=== PATIENT | female | born 1940 | race Caucasian/White ===

== ENCOUNTER 2020-08-06 10:30 | Outpatient (REF) | payer MEDICARE, OTHER, SELFPAY ==
--- NOTE | 2020-08-06 | MM_ITS ---
EXAMINATION: MM SCREENING DIGITAL BREAST TOMOSYNTHESIS, RIGHT CLINICAL INFORMATION: Screening. Asymptomatic. Remote history contralateral left mastectomy 1976. Due for yearly. COMPARISON: Mammography: 07/31/2019, outside exams 2-D images 05/01/2018, 03/28/2017 ([facility], [place], [place]). TECHNIQUE: Digital breast tomosynthesis is performed in both the craniocaudal and mediolateral oblique views along with computer-aided detection (CAD). Synthesized 2D images are generated from the tomosynthesis. FINDINGS: There are scattered areas of fibroglandular density (ACR BI-RADS breast composition Category b). Parenchymal pattern is similar to prior studies. There is no developing density or interval mass or architectural abnormality or abnormal calcifications. Intramammary node again seen mid upper outer right breast. No significant changes prior studies. MM/MM tomosynthesis screening RT IMPRESSION: No mammographic evidence of malignancy. ASSESSMENT: BI-RADS 2: Benign RECOMMENDATION: Routine annual mammography screening. This patient's information was entered into a reminder system with a target due date for their next mammogram.
== END 2020-08-06 10:31 | disposition home or self-care (01) ==
LOC: HO.MAMMO 10:30
PROVIDERS: PCP Internal Medicine; Visit Provider Internal Medicine
DX: Z12.31 Encounter for screening mammogram for malignant neoplasm of breast (principal)
CPT/HCPCS: 77067

== ENCOUNTER → 2020-08-19 09:13 | Outpatient (REF) | payer MEDICARE, OTHER, SELFPAY ==
--- NOTE | 2020-08-19 09:30 | CA_ITS ---
Transthoracic Echocardiogram Patient (Last, First, Middle): Danilea Delgadillo A Gender: Female Date of : 1940 Age: 80 Procedure Date: 08/19/2020 Procedure Type: Transthoracic Echocardiogram Location: OP Height: 165.1 cm Weight: 67.13 kg BSA: 1.74 m2 Heart Rate: bpm BP: 126 / 80 mmHg Associate Programmer Analyst: EZEKIEL Baptiste MD: Pan Hanson MD Vegetable [employer]i Farmworker: Pan Hanson MD Symptoms: Z95.2 S/P AVR I10 HTN Study Quality: Fair ECG Rhythm: Sinus Conclusions: - 1. Normal LV systolic function with grade 1 diastolic dysfunction 2. Normally function bioprosthetic aortic valve 3. Normal RV systolic pressure 4. No pericardial effusion Findings Left Ventricle Normal left ventricular size, thickness, and systolic function. The visually estimated ejection fraction is between 55-60%. Spectral Doppler is indicative of an impaired relaxation filling pattern. E/E prime ratio is <8, consistent with normal filling pressures. Evidence suggests grade I (mild) diastolic dysfunction. Right Ventricle Normal right ventricular cavity size and systolic function. Atria Both atria are normal in size. There is no evidence of interatrial shunt. Aortic Valve A bioprosthetic aortic valve is present. The prosthetic aortic valve appears to be functioning normally. There is mild calcification of the aortic valve. There is no aortic valve stenosis. The mean gradient is 7 mmHg. There is no aortic valve regurgitation. Mitral Valve There is mild anterior and posterior mitral leaflet thickening. There is mild mitral annular calcification. There is trace mitral valve regurgitation. There is no mitral valve stenosis. Pulmonic Valve The pulmonic valve was not well visualized. Tricuspid Valve Likely normal tricuspid valve structure and function. There is trace tricuspid valve regurgitation. The right ventricular systolic pressure is normal. The right ventricular systolic pressure is 25 mmHg. Normal right atrial pressure. There is no evidence of pulmonary hypertension. Great Vessels All visible segments of the aorta are normal in size. The pulmonary artery was not well visualized. Venous The inferior vena cava is normal in size and collapses greater than 50% with inspiration. Pericardium/Pleural There is no evidence of pericardial effusion. Prior Study Comparison No significant change compared to prior study dated: 08/30/2019. Measurements 2D Linear Measurements IVSd: 1.11 0.6-0.9/0.6-1.0 cm LVIDd: 3.74 3.9-5.3/4.2-5.9 cm LVIDd Index: 2.15 2.4-3.2/2.2-3.1 cm/m2 LVIDs: 2.63 2.0-3.6 cm LVPWd: 1.14 0.7-1.1 cm LA Diam: 3.30 2.7-3.8/3.0-4.0 cm LAIDs Index: 1.90 1.5-2.3 cm/m2 LV Mass: 169.11 67-162/88-224 g LV Mass Index: 97.19 43-95/49-115 g/m2 LVOT Diam: 1.90 3.0+(-)1.3 cm 2D Systolic Function EF 4C: 55.30 >55% EF 2C: 51.70 >55% EF BiP: 55.40 >55% Mitral Valve MV Pk E: 0.58 MV PK A: 0.85 MV Decel Time: 310.00 E/A: 0.70 E'Lateral: 5.66 E'Medial: 4.68 E/E' Med: 12.40 E/E' Lat: 10.30 PHT: 91.00 MVA PHT: 2.42 Decel Saunders: 1.88 Aortic Valve AoV Pk Abisai: 1.86 AoV Mn Abisai: 1.21 AoV VTI: 0.37 AoV Pk Grad: 14.00 Aov Mn Grad: 7.00 KASSANDRA Cont.VTI: 1.77 LVOT LVOT Pk Abisai: 1.08 LVOT Mn Abisai: 0.69 LVOT VTI: 0.23 LVOT Pk Grad: 5.00 LVOT Mn Grad: 2.00 LVOT Diam: 1.90 LVOT Area: 2.84 Diastolic Function MV Pk E: 0.58 MV Pk A: 0.85 E/A: 0.70 E'Medial: 4.68 E/E' Med: 12.40 E' Laterial: 5.66 E/E' Lat: 10.30 Tricuspid Valve TR Pk Abisai: 2.37 TR Pk Grad: 22.00 RA Press: 3.00 RVSP: 25.00 Great Vessels Aorta Ao Asc: 3.80 2.1-3.4 cm Ao Arch: 2.20 Updated in Other Vendor System with Status of Final Pan Hanson MD electronically signed on 08/19/2020 4:41:26 PM with status of Final
== END ==
LOC: HO.CARD 09:13
PROVIDERS: Visit Provider Internal Medicine Cardiovascular Disease
DX: I10 Essential (primary) hypertension (principal); Z95.2 Presence of prosthetic heart valve
CPT/HCPCS: 93306

== ENCOUNTER → 2020-09-03 11:10 | Outpatient (BNVA) | payer MEDICARE, OTHER, SELFPAY | PROVIDERS: PCP Internal Medicine; Visit Provider Internal Medicine Cardiovascular Disease | DX: I10 Essential (primary) hypertension (principal); Z95.2 Presence of prosthetic heart valve | CPT/HCPCS: 93005; 99212 ==

== ENCOUNTER 2021-03-29 11:54 | Outpatient (REF) | payer MEDICARE, OTHER, SELFPAY ==
[2021-03-29 12:07] VITALS: BP 152/68; PULSE 61; RESP 16; TEMP 36.4; O2SAT 97
[2021-03-29 12:08] VITALS: BMI 25.2
== END 2021-03-29 11:55 | disposition home or self-care (01) ==
LOC: HO.MS 11:54
PROVIDERS: PCP Internal Medicine; Visit Provider Ophthalmology
PROC: (CPT 66821; principal; 2021-03-29 13:20)
DX: H26.492 Other secondary cataract, left eye (principal); H40.013 Open angle with borderline findings, low risk, bilateral; I10 Essential (primary) hypertension; Z79.899 Other long term (current) drug therapy; Z96.1 Presence of intraocular lens; Z88.2 Allergy status to sulfonamides; Z87.891 Personal history of nicotine dependence
CPT/HCPCS: 66821

== ENCOUNTER 2021-04-29 21:45 | Emergency (ER) | payer MEDICARE, OTHER, SELFPAY ==
--- NOTE | ~2021-04-29 | CT_ITS ---
EXAMINATION: CT ABDOMEN AND PELVIS WITHOUT AND WITH CONTRAST [GI bleeding study] CLINICAL INFORMATION: Rectal bleeding COMPARISON: None. TECHNIQUE: Multidetector volumetric imaging was performed from the superior aspect of the liver through the pubic symphysis before and after the administration of 80 mL Omnipaque 350 intravenous contrast. Postcontrast images were acquired during the arterial and delayed phases.. Sagittal and coronal reformatted images were obtained on the technologist workstation. This CT examination was performed using dose optimization techniques as appropriate, variously including the following: *Automated exposure control *Adjustment of mA and/or kV according to patient size (this includes techniques or standardized protocols for targeted exams where dose is matched to indication/reason for exam; i.e. extremities or head) *Use of iterative reconstruction technique DLP: 1167 mGy-cm FINDINGS: LUNG BASES: The visualized lung bases are unremarkable. LIVER, GALLBLADDER, AND BILIARY TREE: The liver is normal in size, shape, and attenuation. No focal hepatic lesion or biliary ductal dilatation is present. Cholecystectomy. PANCREAS: Unremarkable. SPLEEN: Unremarkable. ADRENAL GLANDS: Unremarkable. GENITOURINARY: The kidneys are normal in size, axis, morphology and parenchymal attenuation with symmetric enhancement bilaterally. No suspicious renal cyst or mass. No filling defects within the renal pelves, ureters or bladder. No hydronephrosis or hydroureter. Ureters are normal in course and caliber. Bladder is normal. No urinary calculi. No perinephric abnormalities. The uterus and adnexa are unremarkable. No adnexal cyst or mass. GASTROINTESTINAL TRACT: Pancolonic diverticulosis, most concentrated within the sigmoid colon. There is arterial enhancement in the low rectum/anal rectal junction which could be mucosal or represent bleeding at this location. No additional sources of potential active gastrointestinal bleeding are identified. Small sliding-type hiatal hernia. Stomach otherwise unremarkable. Prominent diverticulum emanating from the proximal duodenum. ABDOMINAL WALL: No significant hernia is appreciated. LYMPH NODES: Normal. VASCULAR: Aorta is atherosclerotic but normal caliber. Patent venous structures. OSSEOUS STRUCTURES: Unremarkable. CT/CT gi bleed abd pel wo/w con IMPRESSION: * There is arterial phase hyperenhancement in the anorectal region which may relate to bleeding hemorrhoids or mucosal hyperenhancement. No additional sites of potential active gastrointestinal bleeding are identified. * Pancolonic diverticulosis, most concentrated within the left colon. No evidence of diverticulitis.
[2021-04-29 21:47] VITALS: BP 133/68; PULSE 80; RESP 18; TEMP 36.6; O2SAT 96; BMI 24.3
[2021-04-29 22:53] LABS: MANUAL DIFF FLAG NO
[2021-04-29 22:55] LABS: Basophils Percent Auto 0.1 % (0-2); Eosinophils Percent Auto 0.3 % (0-4); Hematocrit 37.8 % (37-47); Hemoglobin 12.7 g/dl (12.0-16.0); Imm Gran Abs Auto 0.03 X10*3/uL (0.00-0.03); Imm Gran Pct Auto 0.3 % (0.0-0.4); Lymphocytes Absolute Auto 1.5 X10*3/uL (1.2-4.9); Lymphocytes Percent Auto 12.9 % (20-40); Mean Corpuscular HGB Conc 33.6 g/dl (31.0-35.0); Mean Corpuscular Hemoglobin 32.2 pg (27.0-33.0); Mean Corpuscular Volume 95.9 fL (80-98); Mean Platelet Volume 9.1 fL (9.4-12.3); Monocytes Absolute Auto 0.9 X10*3/uL (0.1-1.2); Monocytes Percent Auto 8.2 % (2-11); Neutrophils Absolute Auto 8.8 X10*3/uL (2.0-8.3); Neutrophils Percent Auto 78.2 % (45-73); Platelet Count 211 X10*3/uL (160-400); Red Blood Count 3.94 X10*6/uL (4.20-5.50); Red Cell Distribution Width 13.2 % (11.0-16.0); White Blood Count 11.3 X10*3/uL (4.8-10.8)
--- NOTE | 2021-04-29 22:58 | ED_ITS ---
HPI - General Adult General Chief complaint: Vaginal Bleeding Stated complaint: See Stated Time Seen by Provider: 04/29/21 21:54 Source: patient and family Mode of arrival: ambulatory Limitations: no limitations History of Present Illness HPI narrative: no AC therapy, sitting on toilet tonight then saw blood in toilet thought maybe it came from her vagina but she is not sure - no prior bleeding bouts, she did tell her daughter she's been having diarrhea lately and abdominal cramps, had normal colonoscopy 10 years ago. Reports no pain at this time. No further bleeding since large bout at home - it occurred while urinating before bed, no bleeding on the way here. complaint: bleeding Onset (ago): hour(s) (730 AM today) Severity: moderate Pain Consistency: intermittent Relieving factors: none Exacerbating factors: none Associated symptoms: weakness and other (nausea, dizzy when standing, has had intermittent abdominal cramps) Treatments prior to arrival: none Related Data Home Medications Medication Instructions Recorded Confirmed amoxicillin 500 mg tablet 2,000 mg PO ONCE 09/03/20 09/03/20 aspirin 81 mg tablet,delayed 81 mg PO DAILY 09/03/20 09/03/20 release (Adult Low Dose Aspirin) omeprazole 20 mg capsule,delayed 20 mg PO DAILY 09/03/20 09/03/20 release rosuvastatin 20 mg tablet 20 mg PO BEDTIME 09/03/20 09/03/20 Previous Rx's Medication Instructions Recorded metoprolol tartrate 50 mg tablet 75 mg PO BID #270 tab 02/01/21 Allergies Allergy/AdvReac Type Severity Reaction Status Date / Time oxycodone [Oxycodone] Allergy Mild N/V, Unverified 04/02/20 14:55 vomiting Sulfa (Sulfonamide Allergy Mild HIVES Unverified 04/02/20 14:55 Antibiotics) acetaminophen [Vicodin] Allergy Unknown Verified 09/05/19 00:00 atorvastatin [Lipitor] Allergy Unknown Verified 09/05/19 00:00 simvastatin [Zocor] Allergy Unknown Verified 09/05/19 00:00 hydrocodone [Hydrocodone] AdvReac Mild N/V Unverified 04/02/20 14:55 sulfa Allergy Unknown hives Uncoded 09/05/19 00:00 Review of Systems Review of Systems: Constitutional : No Weight loss, No Fever, No Chills ENT/Mouth : No sore throat, No Rhinorrhea Eyes: No Swelling, No Redness Cardiovascular : No Chest Pain, No SOB, No Edema Respiratory : No Cough, No Sputum, No Wheezing Gastrointestinal : Positive Nausea, no Vomiting, positive Diarrhea, positive abdominal Pain, pos Hematochezia, No Melena Genitourinary : No Dysuria, No Urinary Frequency, No Hematuria, No Urgency Musculoskeletal : No joint pain, No Myalgias, No Joint Swelling Skin : No Skin Lesions, No rash Neuro : No Weakness, No Numbness, No Dizziness, No Headache Psych : No Anxiety/Panic, No Depression Heme/Lymph: No Bruising, No Lymphadenopathy Endocrine : No Polyuria, No Polydipsia All other systems reviewed and are negative. [facility] Past Medical History Attestation statement: The following information was validated with the patient. Medical History HTN (hypertension) Surgical History Hx of cardiac cath Hx of knee surgery Hx of mastectomy S/P AVR Family History Family History (Updated 09/03/20 @ 11:17 by Snow Jimenez Wesly) Father CVD (cardiovascular disease) Mother No problems noted. Social History Social History (Updated 04/29/21 @ 22:59 by Kat Smith DO) Patient Tobacco Use Status: Never used Tobacco Use of substances other than those prescribed or required for medical reasons: No Advance Directives: No Advance Directives Information Provided: No Physical Exam Vital Signs: Vital Signs: Last Vital Signs Temp 98 F 04/29/21 21:47 Pulse 83 04/30/21 00:50 Resp 12 04/30/21 00:50 BP 115/54 L 04/30/21 00:50 Pulse Ox 97 04/30/21 00:50 Body Mass Index 24.3 Appearance: Alert. Oriented X3. No acute distress. Eyes: Pupils equal, round and reactive to light. ENT: Pharynx normal. Neck: Normal inspection. Neck supple. CVS: Normal heart rate and rhythm. Pulses normal. Respiratory: No respiratory distress. Breath sounds normal. Abdomen: Soft and non-tender. : no bleeding noted vaginally Rectal: large non-bleeding hemorrhoid, dried blood noted at rectum Skin: Skin warm and dry. Normal skin color. Normal skin turgor. Extremities: No lower extremity edema. No calf ttp Neuro: Oriented X 3. No motor deficit. No sensory deficit. Course Course Course Narrative: no further bouts of bleeding in the department, signed out pending CT scan and repeat CBC ordered for 230am. Dr Roche to assume care. Medical Decision Making MDM Narrative Medical decision making narrative: 80 yo female with hx of HTN tissue s/p AVR at this time she likely had rectal bleeding as there is no evidence of vaginal bleeding on exam - will obtain basic labs, guiac study, EKG, CT scan for GIB protocol - IVF and zofran. Dispo per results and findings, plan to recheck H/H Lab Data Result diagrams: 04/29/21 22:48 04/29/21 22:48 Labs: Lab Results 04/29/21 04/29/21 04/29/21 Range/Units 22:48 22:48 22:54 WBC 11.3 H (4.8-10.8) X10*3/uL RBC 3.94 L (4.20-5.50) X10*6/uL Hgb 12.7 (12.0-16.0) g/dl Hct 37.8 (37-47) % MCV 95.9 (80-98) fL MCH 32.2 (27.0-33.0) pg MCHC 33.6 (31.0-35.0) g/dl RDW 13.2 (11.0-16.0) % Plt Count 211 (160-400) X10*3/uL MPV 9.1 L (9.4-12.3) fL Immature Gran % (Auto) 0.3 (0.0-0.4) % Neut % (Auto) 78.2 H (45-73) % Lymph % (Auto) 12.9 L (20-40) % Andrews % (Auto) 8.2 (2-11) % Eos % (Auto) 0.3 (0-4) % Baso % (Auto) 0.1 (0-2) % Lymph # (Auto) 1.5 (1.2-4.9) X10*3/uL Andrews # (Auto) 0.9 (0.1-1.2) X10*3/uL Eos # (Auto) 0.0 (0.0-0.4) X10*3/uL Baso # (Auto) 0.0 (0.0-0.2) X10*3/uL Abs Immat Gran (auto) 0.03 (0.00-0.03) X10*3/uL Absolute Neuts (auto) 8.8 H (2.0-8.3) X10*3/uL Absolute Nucleated RBC 0.000 (0.0-0.012) X10*3/uL Nucleated RBC % (auto) 0.0 (0.0-0.2) /100WBC Sodium 142 (135-145) mmol/L Potassium 4.1 (3.3-5.1) mmol/L Chloride 108 (96-108) mmol/L Carbon Dioxide 25 (22-29) mmol/L Anion Gap 13 (12-20) BUN 11 (9-16) mg/dL Creatinine 0.85 (0.5-1.4) mg/dL Estim Creat Clear Calc 47.4 Estimated GFR > 60 Random Glucose 104 (60-115) mg/dL Calcium 9.6 (8.4-10.2) mg/dL Urine Color YELLOW Urine Appearance CLEAR Urine pH 6.0 (5.0-8.0) Ur Specific [place] <= 1.005 (1.005-1.025) Urine Protein NEG (NEG-TRACE) MG/DL Urine Glucose (UA) NEG (NEG) MG/DL Urine Ketones NEG (NEG) MG/DL Urine Blood 2+ H (NEG) Urine Nitrite NEG (NEG) Ur Leukocyte Esterase NEG (NEG) Urine RBC 0-2 (0) /HPF Urine WBC 0 (0-4) /HPF Ur Squamous Epith Cells 1+ /LPF Urine Bacteria TRACE /LPF Stool Occult Blood (NEGATIVE) Blood Type Antibody Screen 04/30/21 04/30/21 Range/Units 00:25 00:53 WBC (4.8-10.8) X10*3/uL RBC (4.20-5.50) X10*6/uL Hgb (12.0-16.0) g/dl Hct (37-47) % MCV (80-98) fL MCH (27.0-33.0) pg MCHC (31.0-35.0) g/dl RDW (11.0-16.0) % Plt Count (160-400) X10*3/uL MPV (9.4-12.3) fL Immature Gran % (Auto) (0.0-0.4) % Neut % (Auto) (45-73) % Lymph % (Auto) (20-40) % Andrews % (Auto) (2-11) % Eos % (Auto) (0-4) % Baso % (Auto) (0-2) % Lymph # (Auto) (1.2-4.9) X10*3/uL Andrews # (Auto) (0.1-1.2) X10*3/uL Eos # (Auto) (0.0-0.4) X10*3/uL Baso # (Auto) (0.0-0.2) X10*3/uL Abs Immat Gran (auto) (0.00-0.03) X10*3/uL Absolute Neuts (auto) (2.0-8.3) X10*3/uL Absolute Nucleated RBC (0.0-0.012) X10*3/uL Nucleated RBC % (auto) (0.0-0.2) /100WBC Sodium (135-145) mmol/L Potassium (3.3-5.1) mmol/L Chloride (96-108) mmol/L Carbon Dioxide (22-29) mmol/L Anion Gap (12-20) BUN (9-16) mg/dL Creatinine (0.5-1.4) mg/dL Estim Creat Clear Calc Estimated GFR Random Glucose (60-115) mg/dL Calcium (8.4-10.2) mg/dL Urine Color Urine Appearance Urine pH (5.0-8.0) Ur Specific [place] (1.005-1.025) Urine Protein (NEG-TRACE) MG/DL Urine Glucose (UA) (NEG) MG/DL Urine Ketones (NEG) MG/DL Urine Blood (NEG) Urine Nitrite (NEG) Ur Leukocyte Esterase (NEG) Urine RBC (0) /HPF Urine WBC (0-4) /HPF Ur Squamous Epith Cells /LPF Urine Bacteria /LPF Stool Occult Blood POSITIVE (NEGATIVE) Blood Type O Positive Antibody Screen NEGATIVE Discharge Plan Discharge Clinical Impression: Bright red rectal bleeding Prescriptions: No Action metoprolol tartrate 50 mg tablet 75 mg PO BID Qty: 270 RF: 2 omeprazole 20 mg capsule,delayed release(DR/EC) 20 mg PO DAILY RF: 0 rosuvastatin 20 mg tablet 20 mg PO BEDTIME RF: 0 amoxicillin 500 mg tablet 2,000 mg PO ONCE RF: 0 aspirin [Adult Low Dose Aspirin] 81 mg tablet,delayed release (DR/EC) 81 mg PO DAILY RF: 0
[2021-04-29 23:00] LABS: Appearance Urine CLEAR; Color Urine YELLOW; Glucose Urine UA NEG (NEG); Leukocyte Esterase Urine NEG (NEG); Nitrite Urine NEG (NEG); Specific Gravity - Urine <= 1.005 (1.005-1.025); UACC Culture Trigger NO; Urine Blood 2+ (NEG); Urine Ketones NEG (NEG); Urine Protein NEG (NEG-TRACE)
[2021-04-29 23:06] LABS: Bacteria Urine TRACE /LPF; Squamous Epithelial Cell Urine 1+ /LPF
[2021-04-29 23:08] LABS: RBC Urine 0-2 /HPF (0); WBC Urine 0 /HPF (0-4)
[2021-04-29 23:12] LABS: Anion Gap 13 (12-20); Blood Urea Nitrogen 11 mg/dL (9-16); Calcium 9.6 mg/dL (8.4-10.2); Carbon Dioxide 25 mmol/L (22-29); Chloride 108 mmol/L (96-108); Creatinine Clr Calc Pharmacy 47.4; Estimated Glomerular Filt Rate > 60; Glucose Random 104 mg/dL (60-115); Potassium 4.1 mmol/L (3.3-5.1); Sodium 142 mmol/L (135-145)
[2021-04-30] MEDS: 0.9 % Sodium Chloride 500 ML IV (00:01)
[2021-04-30 00:50] VITALS: BP 115/54; PULSE 83; RESP 12; O2SAT 97
[2021-04-30 00:59] LABS: OBS Int Ctl Valid YES; OBS1 POSITIVE (NEGATIVE)
[2021-04-30] MEDS: iohexoL 350 MG/ML 100 ML INFUS..BTL 80 ML IV (02:00)
[2021-04-30 02:10] VITALS: BP 129/64; PULSE 90; RESP 16; TEMP 36.9; O2SAT 95
[2021-04-30] MEDS: ondansetron HCL 4 MG/2 ML VIAL IVPUSH (02:47)
[2021-04-30 03:02] LABS: Hematocrit 36.6 % (37-47); Hemoglobin 12.6 g/dl (12.0-16.0); Mean Corpuscular HGB Conc 34.4 g/dl (31.0-35.0); Mean Corpuscular Hemoglobin 32.6 pg (27.0-33.0); Mean Corpuscular Volume 94.8 fL (80-98); Platelet Count 195 X10*3/uL (160-400); Red Blood Count 3.86 X10*6/uL (4.20-5.50); Red Cell Distribution Width 13.4 % (11.0-16.0); White Blood Count 10.1 X10*3/uL (4.8-10.8)
[2021-04-30 03:49] VITALS: BP 154/75; PULSE 87; RESP 20; O2SAT 95
[2021-04-30 06:01] VITALS: BP 163/100; PULSE 70; RESP 16; O2SAT 98
--- NOTE | 2021-04-30 06:03 | PC.NURSE ---
Daughter Cristina contacted regarding transport home [phone]. Cristina on the way. VSS at this time. Pt ambulating to the bathroom with a steady gait, denies pain.
== END 2021-04-30 06:18 | disposition home or self-care (01) ==
PROVIDERS: Emergency Medicine; Emergency Provider Student in an Organized Health Care Education/Training Program; PCP Internal Medicine
DX: K62.5 Hemorrhage of anus and rectum (principal); I10 Essential (primary) hypertension; Z95.2 Presence of prosthetic heart valve
CPT/HCPCS: 36415; 74178; 80048; 81001; 81003; 82272; 85025; 85027; 86850; 86900; 86901; 96361; 96374; 99284; J2405; Q9967

== ENCOUNTER → 2021-08-13 09:16 | Outpatient (REF) | payer MEDICARE, OTHER, SELFPAY ==
--- NOTE | ~2021-08-13 | MM_ITS ---
EXAMINATION: MM SCREENING DIGITAL BREAST TOMOSYNTHESIS, RIGHT CLINICAL INFORMATION: Due for yearly. Prior history remote left mastectomy 1976. COMPARISON: Mammography: 08/06/2020, 07/31/2019, 05/01/2018, 03/28/2017, 03/23/2016 TECHNIQUE: Digital breast tomosynthesis is performed in both the craniocaudal and mediolateral oblique views along with computer-aided detection (CAD). Synthesized 2D images are generated from the tomosynthesis. FINDINGS: There are scattered areas of fibroglandular density (ACR BI-RADS breast composition Category b). There are no significant masses, abnormal calcifications, or other abnormalities. Parenchymal pattern is similar to prior studies. There is no developing density or architectural abnormality. The axilla and skin contours are unremarkable. No significant changes. MM/MM tomosynthesis screening RT IMPRESSION: No mammographic evidence of malignancy. ASSESSMENT: BI-RADS 2: Benign RECOMMENDATION: Routine annual mammography screening. This patient's information was entered into a reminder system with a target due date for their next mammogram.
--- NOTE | 2021-08-13 09:19 | CA_ITS ---
Transthoracic Echocardiogram Patient (Last, First, Middle): Daniela Delgadillo A Gender: Female Date of : 1940 Age: 81 Procedure Date: 08/13/2021 Procedure Type: Transthoracic Echocardiogram Location: OP Height: 165.1 cm Weight: 66.68 kg BSA: 1.74 m2 Heart Rate: bpm BP: 120 / 78 mmHg Conventions Reservationist: PATRICIA Referring MD: Pan Hanson MD Hospital Internship: Pan Hanson MD Symptoms: Z95.2 - Presence of prosthetic heart valve Study Quality: Fair ECG Rhythm: Sinus Conclusions: - 1. Normal LV systolic function with grade I diastolic dysfunction 2. Normally functioning bioprosthetic aortic valve with mean gradient of 7 mm of Hg 3. 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 Normal RVSP 5. No pericardial effusion Findings Left Ventricle Normal left ventricular size, thickness, and systolic function. The visually estimated ejection fraction is between 55-60%. Spectral Doppler is indicative of an impaired relaxation filling pattern. E/E prime ratio is <8, consistent with normal filling pressures. Evidence suggests grade I (mild) diastolic dysfunction. Right Ventricle Normal right ventricular cavity size. There is borderline right ventricular systolic function. Atria The left atrium is normal in size. There is no evidence of interatrial shunt. The right atrium is normal in size. Aortic Valve The prosthetic aortic valve appears to be functioning normally. The mean gradient is 7 mmHg. There is no aortic valve regurgitation. Mitral Valve There is mild anterior and posterior mitral leaflet thickening. There is mild mitral annular calcification. There is trace mitral valve regurgitation. There is no mitral valve stenosis. Pulmonic Valve The pulmonic valve was not well visualized. Tricuspid Valve Likely normal tricuspid valve structure and function. There is mild tricuspid valve regurgitation. The right ventricular systolic pressure is normal. The right ventricular systolic pressure is 27 mmHg. Normal right atrial pressure. There is no evidence of pulmonary hypertension. Great Vessels The pulmonary artery was not well visualized. There is mild dilatation of the ascending aorta measuring 3.90 cm. Venous The inferior vena cava is normal in size and collapses greater than 50% with inspiration. Pericardium/Pleural There is no evidence of pericardial effusion. Prior Study Comparison Changes noted compared to prior study dated: 08/19/2020. Ascending aorta is mildly dilated Measurements 2D Linear Measurements IVSd: 1.11 0.6-0.9/0.6-1.0 cm LVIDd: 4.74 3.9-5.3/4.2-5.9 cm LVIDd Index: 2.72 2.4-3.2/2.2-3.1 cm/m2 LVIDs: 3.29 2.0-3.6 cm LVPWd: 1.17 0.7-1.1 cm LA Diam: 4.20 2.7-3.8/3.0-4.0 cm LAIDs Index: 2.41 1.5-2.3 cm/m2 LV Mass: 249.03 67-162/88-224 g LV Mass Index: 143.12 43-95/49-115 g/m2 LVOT Diam: 1.90 3.0+(-)1.3 cm 2D Systolic Function EF 4C: 58.50 >55% EF 2C: 61.60 >55% EF BiP: 57.90 >55% Mitral Valve MV Pk E: 0.48 MV PK A: 0.88 MV Decel Time: 250.00 E/A: 0.50 E'Lateral: 6.96 E'Medial: 4.68 E/E' Med: 10.20 E/E' Lat: 6.90 PHT: 73.00 MVA PHT: 3.01 Decel Travis: 1.91 Aortic Valve AoV Pk Abisai: 1.69 AoV Mn Abisai: 1.25 AoV VTI: 0.36 AoV Pk Grad: 11.00 Aov Mn Grad: 7.00 KASSANDRA Cont.VTI: 2.11 LVOT LVOT Pk Abisai: 1.26 LVOT Mn Abisai: 0.89 LVOT VTI: 0.27 LVOT Pk Grad: 6.00 LVOT Mn Grad: 4.00 LVOT Diam: 1.90 LVOT Area: 2.84 Diastolic Function MV Pk E: 0.48 MV Pk A: 0.88 E/A: 0.50 E'Medial: 4.68 E/E' Med: 10.20 E' Laterial: 6.96 E/E' Lat: 6.90 Right Ventricle TAPSE (mm): 16.70 TVS' Abisai: 8.92 Tricuspid Valve TR Pk Abisai: 2.43 TR Pk Grad: 24.00 RA Press: 3.00 RVSP: 27.00 Great Vessels Aorta Ao Asc: 3.90 2.1-3.4 cm Ao Arch: 2.70 Updated in Other Vendor System with Status of Final Pan Hanson MD electronically signed on 08/14/2021 7:09:32 AM with status of Final
== END ==
LOC: HO.CARD 09:16
PROVIDERS: PCP Internal Medicine; Visit Provider Internal Medicine Cardiovascular Disease
DX: Z12.31 Encounter for screening mammogram for malignant neoplasm of breast (principal); I10 Essential (primary) hypertension; Z95.2 Presence of prosthetic heart valve
CPT/HCPCS: 77063; 77067; 93306

== ENCOUNTER → 2021-09-02 13:34 | Outpatient (BNVA) | payer MEDICARE, OTHER, SELFPAY | PROVIDERS: PCP Internal Medicine; Referring Provider Internal Medicine; Visit Provider Internal Medicine Cardiovascular Disease | DX: I10 Essential (primary) hypertension (principal); I77.89 Other specified disorders of arteries and arterioles; Z95.2 Presence of prosthetic heart valve; Z79.82 Long term (current) use of aspirin; Z79.899 Other long term (current) drug therapy | CPT/HCPCS: 93005; 99212 ==

== ENCOUNTER → 2022-08-18 09:25 | Outpatient (REF) | payer MEDICARE, OTHER, SELFPAY ==
--- NOTE | 2022-08-18 09:29 | CA_ITS ---
Transthoracic Echocardiogram Patient (Last, First, Middle): Daniela Delgadillo A Gender: Female Date of : 1940 Age: 82 Procedure Date: 08/18/2022 Procedure Type: Transthoracic Echocardiogram Location: OP Height: 162.56 cm Weight: 65.77 kg BSA: 1.71 m2 Heart Rate: 73 bpm BP: 125 / 65 mmHg Building Equipment Operator: CHRISTOPHER Referring MD: Pan Hanson MD Applied Psychology Professor: Pan Hanson MD Symptoms: Z95.2 - Presence of prosthetic heart valve Study Quality: Fair ECG Rhythm: Sinus Conclusions: - 1. Normal LV systolic function with impaired relaxation filling pattern 2. Normally function bioprosthetic aortic valve with mean gradient of 7 mmHg 3. Normal RV systolic pressure 4. No gross pericardial effusion Findings Left Ventricle Normal left ventricular size, thickness, and systolic function. The visually estimated ejection fraction is between 55-60%. Regional wall motion abnormalities can not be excluded due to suboptimal endocardial definition. Spectral Doppler is indicative of an impaired relaxation filling pattern. E/E prime ratio is between 8 and 15 consistent with indeterminate filling pressures. Right Ventricle Normal right ventricular cavity size and systolic function. Atria The left atrium is mildly dilated. There is lipomatous hypertrophy of the interatrial septum. There is no evidence of interatrial shunt. The right atrium was not well visualized. Aortic Valve A bioprosthetic aortic valve is present. The prosthetic aortic valve appears to be functioning normally. The mean gradient is 7 mmHg. There is no aortic valve regurgitation. Mitral Valve There is mild anterior mitral leaflet thickening. There is mild mitral annular calcification. There is trace mitral valve regurgitation. There is no mitral valve stenosis. Pulmonic Valve The pulmonic valve was not well visualized. Tricuspid Valve The tricuspid valve was not well visualized. There is trace tricuspid valve regurgitation. The right ventricular systolic pressure is normal. The right ventricular systolic pressure is 27 mmHg. Normal right atrial pressure. There is no evidence of pulmonary hypertension. Great Vessels All visible segments of the aorta are normal in size. The pulmonary artery was not well visualized. Pericardium/Pleural There is no evidence of pericardial effusion. Prior Study Comparison Changes noted compared to prior study dated: 08/13/2021. ascending aorta is measured to be of 3.6 cm on this study could be due to off axis views Measurements 2D Linear Measurements IVSd: 1.17 0.6-0.9/0.6-1.0 cm LVIDd: 4.08 3.9-5.3/4.2-5.9 cm LVIDd Index: 2.39 2.4-3.2/2.2-3.1 cm/m2 LVIDs: 2.46 2.0-3.6 cm LVPWd: 1.01 0.7-1.1 cm LA Diam: 3.80 2.7-3.8/3.0-4.0 cm LAIDs Index: 2.22 1.5-2.3 cm/m2 LV Mass: 184.49 67-162/88-224 g LV Mass Index: 107.89 43-95/49-115 g/m2 LVOT Diam: 1.90 3.0+(-)1.3 cm 2D Systolic Function EF 4C: 57.50 >55% EF 2C: 59.20 >55% EF BiP: 57.70 >55% Mitral Valve MV Pk E: 0.78 MV PK A: 0.79 MV Decel Time: 153.00 E/A: 1.00 E'Lateral: 5.77 E'Medial: 3.48 E/E' Med: 22.40 E/E' Lat: 13.50 PHT: 45.00 MVA PHT: 4.89 Decel Baker: 5.09 Aortic Valve AoV Pk Abisai: 1.72 AoV Mn Abisai: 1.23 AoV VTI: 0.39 AoV Pk Grad: 12.00 Aov Mn Grad: 7.00 KASSANDRA Cont.VTI: 1.79 LVOT LVOT Pk Abisai: 1.12 LVOT Mn Abisai: 0.81 LVOT VTI: 0.25 LVOT Pk Grad: 5.00 LVOT Mn Grad: 3.00 LVOT Diam: 1.90 LVOT Area: 2.84 Diastolic Function MV Pk E: 0.78 MV Pk A: 0.79 E/A: 1.00 E'Medial: 3.48 E/E' Med: 22.40 E' Laterial: 5.77 E/E' Lat: 13.50 Right Ventricle TAPSE (mm): 19.10 TVS' Abisai: 11.40 Tricuspid Valve TR Pk Abisai: 2.47 TR Pk Grad: 24.00 RA Press: 3.00 RVSP: 27.00 Great Vessels Aorta Sinus of Valsalva: 3.60 2.0-3.5 cm Ao Asc: 3.60 2.1-3.4 cm Pulmonary Valve PV Pk Abisai: 0.71 Peak PV Grad: 2.00 Updated in Other Vendor System with Status of Final Pan Hanson MD electronically signed on 08/18/2022 12:09:31 PM with status of Final
== END ==
LOC: HO.CARD 09:25
PROVIDERS: PCP Internal Medicine; Visit Provider Internal Medicine Cardiovascular Disease
DX: I77.89 Other specified disorders of arteries and arterioles (principal); Z95.2 Presence of prosthetic heart valve
CPT/HCPCS: 93306

== ENCOUNTER 2022-08-19 10:53 | Outpatient (REF) | payer MEDICARE, OTHER, SELFPAY ==
--- NOTE | ~2022-08-19 | MM_ITS ---
EXAMINATION: MM SCREENING DIGITAL BREAST TOMOSYNTHESIS, RIGHT CLINICAL INFORMATION: Screening. Asymptomatic. Status post left mastectomy. COMPARISON: Mammography: August 13, 2021 and studies dating back to March 23, 2016 TECHNIQUE: Digital breast tomosynthesis is performed in both the craniocaudal and mediolateral oblique views along with computer-aided detection (CAD). Synthesized 2D images are generated from the tomosynthesis. FINDINGS: There are scattered areas of fibroglandular density (ACR BI-RADS breast composition Category b). There are no significant masses, abnormal calcifications, or other abnormalities. MM/MM tomosynthesis screening RT IMPRESSION: No significant changes from prior exam. ASSESSMENT: BI-RADS 1: Negative RECOMMENDATION: Routine annual mammography screening. This patient's information was entered into a reminder system with a target due date for their next mammogram.
== END 2022-08-19 10:54 | disposition home or self-care (01) ==
LOC: HO.MAMMO 10:53
PROVIDERS: PCP Internal Medicine; Visit Provider Internal Medicine
DX: Z12.31 Encounter for screening mammogram for malignant neoplasm of breast (principal)
CPT/HCPCS: 77063; 77067

== ENCOUNTER → 2022-09-08 13:26 | Outpatient (BNVA) | payer MEDICARE, OTHER, SELFPAY | PROVIDERS: PCP Internal Medicine; Referring Provider Internal Medicine; Visit Provider Internal Medicine Cardiovascular Disease | DX: I77.89 Other specified disorders of arteries and arterioles (principal); I10 Essential (primary) hypertension; Z95.2 Presence of prosthetic heart valve; Z98.890 Other specified postprocedural states | CPT/HCPCS: 93005; 99212 ==

== ENCOUNTER → 2023-08-18 09:51 | Outpatient (REF) | payer MEDICARE, OTHER, SELFPAY ==
--- NOTE | 2023-08-18 09:55 | CA_ITS ---
Transthoracic Echocardiogram Patient (Last, First, Middle): Daniela Delgadillo A Gender: Female Date of : 1940 Age: 83 Procedure Date: 08/18/2023 Procedure Type: Transthoracic Echocardiogram Location: OP Height: 162.56 cm Weight: 66.23 kg BSA: 1.71 m2 Heart Rate: bpm BP: 118 / 58 mmHg Environmental Projects Advisor: TO Referring MD: Pan Hanson MD System Administrator: Pan Hanson MD Symptoms: Z95.2 - Presence of prosthetic heart valve Study Quality: Fair ECG Rhythm: Sinus Conclusions: - 1. Normal LV ejection fraction 60 65% with impaired relaxation filling pattern 2. Normally functioning bioprosthetic aortic valve with mean gradient of 7 mmHg 3. Mildly dilated ascending aorta at 3.8 cm 4. Mildly dilated left atrium 5. Normal RV systolic pressure 6. No pericardial effusion Findings Left Ventricle Normal left ventricular size, thickness, and systolic function. The visually estimated ejection fraction is between 60-65%. Spectral Doppler is indicative of an impaired relaxation filling pattern. E/E prime ratio is between 8 and 15 consistent with indeterminate filling pressures. Right Ventricle Normal right ventricular cavity size and systolic function. Atria The left atrium is mildly dilated. There is no evidence of interatrial shunt. The right atrium is likely dilated. Aortic Valve A bioprosthetic aortic valve is present. The prosthetic aortic valve appears to be functioning normally. The mean gradient is 7 mmHg. Mitral Valve There is mild anterior and posterior mitral leaflet thickening. There is mild mitral annular calcification. There is trace mitral valve regurgitation. There is no mitral valve stenosis. Pulmonic Valve The pulmonic valve is likely normal. Tricuspid Valve Normal tricuspid valve structure. There is mild tricuspid valve regurgitation. The right ventricular systolic pressure is normal. The right ventricular systolic pressure is 27 mmHg. Normal right atrial pressure. There is no evidence of pulmonary hypertension. Great Vessels The pulmonary artery was not well visualized. There is mild dilatation of the ascending aorta measuring 3.80 cm. Venous The inferior vena cava is normal in size and collapses greater than 50% with inspiration. Pericardium/Pleural There is no evidence of pericardial effusion. Prior Study Comparison Changes noted compared to prior study dated: 08/18/2022. left atrium and ascending aorta are mildly dilated on this study Measurements 2D Linear Measurements IVSd: 1.13 0.6-0.9/0.6-1.0 cm LVIDd: 4.49 3.9-5.3/4.2-5.9 cm LVIDd Index: 2.63 2.4-3.2/2.2-3.1 cm/m2 LVIDs: 3.09 2.0-3.6 cm LVPWd: 1.00 0.7-1.1 cm LA Diam: 3.60 2.7-3.8/3.0-4.0 cm LAIDs Index: 2.11 1.5-2.3 cm/m2 LV Mass: 207.04 67-162/88-224 g LV Mass Index: 121.07 43-95/49-115 g/m2 LVOT Diam: 2.00 3.0+(-)1.3 cm 2D Systolic Function EF 4C: 61.00 >55% EF 2C: 60.00 >55% EF BiP: 60.00 >55% Mitral Valve MV Pk E: 0.71 MV PK A: 0.82 MV Decel Time: 213.00 E/A: 0.90 E'Lateral: 5.44 E'Medial: 3.92 E/E' Med: 18.10 E/E' Lat: 13.10 PHT: 62.00 MVA PHT: 3.55 Decel Coke: 3.34 Aortic Valve AoV Pk Abisai: 1.81 AoV Mn Abisai: 1.27 AoV VTI: 0.41 AoV Pk Grad: 13.00 Aov Mn Grad: 7.00 KASSANDRA Cont.VTI: 1.73 LVOT LVOT Pk Abisai: 1.00 LVOT Mn Abisai: 0.65 LVOT VTI: 0.23 LVOT Pk Grad: 4.00 LVOT Mn Grad: 2.00 LVOT Diam: 2.00 LVOT Area: 3.14 Diastolic Function MV Pk E: 0.71 MV Pk A: 0.82 E/A: 0.90 E'Medial: 3.92 E/E' Med: 18.10 E' Laterial: 5.44 E/E' Lat: 13.10 Right Ventricle TAPSE (mm): 18.20 TVS' Abisai: 9.46 Tricuspid Valve TR Pk Abisai: 2.43 TR Pk Grad: 24.00 RA Press: 3.00 RVSP: 27.00 Great Vessels Aorta Ao Asc: 3.80 2.1-3.4 cm Updated in Other Vendor System with Status of Final Pan Hanson MD electronically signed on 08/19/2023 11:51:39 AM with status of Final
== END ==
LOC: HO.CARD 09:51
PROVIDERS: PCP Internal Medicine; Visit Provider Internal Medicine Cardiovascular Disease
DX: I77.89 Other specified disorders of arteries and arterioles (principal); Z95.2 Presence of prosthetic heart valve
CPT/HCPCS: 93306

== ENCOUNTER → 2023-08-18 09:55 | Outpatient (BNV) | payer MEDICARE, OTHER, SELFPAY | PROVIDERS: PCP Internal Medicine; Visit Provider Internal Medicine Cardiovascular Disease | DX: I34.81 Nonrheumatic mitral (valve) annulus calcification (principal); I36.1 Nonrheumatic tricuspid (valve) insufficiency | CPT/HCPCS: 93306 ==

== ENCOUNTER 2023-08-25 10:51 | Outpatient (REF) | payer MEDICARE, OTHER, SELFPAY ==
--- NOTE | ~2023-08-25 | MM_ITS ---
EXAMINATION: MM SCREENING DIGITAL BREAST TOMOSYNTHESIS, RIGHT CLINICAL INFORMATION: Screening. Asymptomatic. The patient is status post left mastectomy. COMPARISON: Mammography: This study is compared with prior exams dating back to 2019. TECHNIQUE: Digital breast tomosynthesis is performed in both the craniocaudal and mediolateral oblique views along with computer-aided detection (CAD). Synthesized 2D images are generated from the tomosynthesis. FINDINGS: There are scattered areas of fibroglandular density (ACR BI-RADS breast composition Category b). There are no significant masses, abnormal calcifications, or other abnormalities. MM/MM tomosynthesis screening RT IMPRESSION: No mammographic evidence of malignancy. ASSESSMENT: BI-RADS BI-RADS 1 - Negative RECOMMENDATION: Routine annual mammography screening. 1 year F/U This examination should not preclude the clinical evaluation of a suspicious palpable abnormality. This patient's information was entered into a reminder system with a target due date for their next mammogram.
== END 2023-08-25 10:52 | disposition home or self-care (01) ==
LOC: HO.MAMMO 10:51
PROVIDERS: PCP Internal Medicine; Visit Provider Internal Medicine
DX: Z12.31 Encounter for screening mammogram for malignant neoplasm of breast (principal)
CPT/HCPCS: 77063; 77067

== ENCOUNTER → 2023-08-25 11:00 | Outpatient (BNV) | payer MEDICARE, OTHER, SELFPAY | PROVIDERS: PCP Internal Medicine; Visit Provider Radiology Diagnostic Radiology | DX: Z12.31 Encounter for screening mammogram for malignant neoplasm of breast (principal) | CPT/HCPCS: 77063; 77067 ==

== ENCOUNTER 2023-09-11 09:56 | Outpatient (AMB) | payer MEDICARE, OTHER, SELFPAY ==
[2023-09-11 10:02] VITALS: BP 128/60; PULSE 70; BMI 25.7
--- NOTE | 2023-09-11 10:02 | MHC.OFFVIS ---
Intake Vital Signs 09/11/23 10:02 Height 5 ft 4 in Weight 149 lb 14.629 oz BMI 25.7 BP 128/60 Blood Pressure Location Rt brachial Position Sitting Pulse 70 Intake Visit Reasons: 1 yr f/up s/p echo Intake Note: 1 year follow-up after echo with ekg feeling good Registered Dental Hygienist Required: No Allergies oxycodone [Oxycodone] Allergy (Mild, Verified 09/08/22 13:29) N/V, vomiting Sulfa (Sulfonamide Antibiotics) Allergy (Mild, Verified 09/08/22 13:29) HIVES acetaminophen [Vicodin] Allergy (Unknown, Verified 09/08/22 13:29) uknown atorvastatin [Lipitor] Allergy (Unknown, Verified 09/08/22 13:29) Unknown simvastatin [Zocor] Allergy (Unknown, Verified 09/08/22 13:29) Unknown hydrocodone [Hydrocodone] Adverse Reaction (Mild, Verified 09/08/22 13:29) N/V sulfa Allergy (Unknown, Uncoded 09/08/22 13:29) hives Medication List - Last Reconciled 09/11/23 by Pan Hanson MD amoxicillin 2,000 mg PO ONCE aspirin (Adult Low Dose Aspirin) 81 mg PO DAILY metoprolol tartrate 75 mg (1.5 x 50 mg) PO BID 90 days omeprazole 20 mg PO DAILY rosuvastatin 20 mg PO BEDTIME HPI HPI Comments History of Present Illness Details Daniela comes for follow-up. She has been doing well from cardiac perspective. She denies any exertional symptoms. Remains very active. Takes all her medications. Denies any exertional chest pain, shortness of breath, orthopnea, PND. No prolonged palpitation irregular heartbeat. Recent echocardiogram shows normally function bioprosthetic aortic valve with mildly enlarged thoracic aorta with normal LV ejection fraction. PENDING SALE TO [facility] Medical History Enlarged thoracic aorta HTN (hypertension) Surgical History S/P AVR Hx of mastectomy Hx of knee surgery Hx of cardiac cath Family History Father CVD (cardiovascular disease) Mother No problems noted. Social History Alcohol intake: current Alcohol intake frequency: holidays/special occasions only Patient Tobacco Use Status: Never used Tobacco Review of Systems Const Denies chills, Denies fatigue, Denies fever(s), Denies frequent falls, Denies weakness, Denies weight gain and Denies weight loss ENT Denies dizziness Card Denies chest pain, Denies leg edema, Denies lightheadedness, Denies palpitations, Denies dyspnea, Denies dyspnea on exertion, Denies orthopnea and Denies other (loss of consciousness) Resp Denies cough, Denies dyspnea and Denies dyspnea on exertion GI Denies hematochezia and Denies change in stool character Musc Denies abnormal gait, Denies muscle weakness, Denies numbness, Denies radiating pain into limb and Denies tingling Neuro Denies abnormal gait, Denies dizziness, Denies frequent falls, Denies numbness, Denies tingling and Denies weakness Endo Denies fatigue and Denies palpitations Physical Exam Vital Signs: Last Vital Signs Pulse 70 09/11/23 10:02 BP 128/60 09/11/23 10:02 BMI result Body Mass Index 25.7 Const General: cooperative, comfortable, no acute distress, alert, awake and well groomed Nutritional Appearance: average body habitus Orientation/consciousness: patient oriented x3 Limitations: no limitations Neck Neck: Yes trachea midline, Yes supple and Yes no JVD Chest Chest palpation & inspection: normal inspection of the chest and other (Well-healed sternotomy scar) Resp Effort & Inspection: normal respiratory effort Auscultation: clear to auscultation bilaterally Cardio Jugular venous distension: no JVD Palpation: normal PMI Rate: regular rate Rhythm: regular rhythm Heart sounds: S1 normal heart sound present, S2 normal heart sound present, no click, no gallops, Murmur heart sound present systolic early and Other heart sounds present (S4 present) GI Auscultation: normal bowel sounds Skin General skin exam: no rashes or lesions noted Neuro General: patient oriented x3 and no focal motor deficits Extrem General: Yes no clubbing, cyanosis or edema Psych Appearance: grossly normal Office Procedures EKG Details: EKG shows normal sinus rhythm incomplete right bundle-branch block without any acute ST T wave changes [id number], Complete Assessment & Plan Assessment & Plan (1) S/P AVR: Code(s): Z95.2 - Presence of prosthetic heart valve Plan: Status post transcatheter aortic valve replacement, doing well. Valve is working well clinically. Continue aggressive vascular risk factor modification. Continue low-dose aspirin therapy. SBE prophylaxis as per ACC/aha guidelines. Blood pressure is currently well optimized. (2) Enlarged thoracic aorta: Comment: 3.9 cm, July 2021 Code(s): I77.89 - Other specified disorders of arteries and arterioles Plan: Stable mild thoracic aortic aneurysm. No interventions required in terms of surgery. Continue aggressive medical interventions with metoprolol with good blood pressure control. Advised to avoid sudden strenuous isometric exercise. Will follow up in the clinic in 1 year's time after an echocardiogram. Thank you for allowing me to partake in the care Coding Level of Care Code Est Pt Level 4 (82190) Diagnoses S/P AVR Z95.2 Enlarged thoracic aorta I77.89 CPT Codes EKG - CPT: 60924-[id number], Complete ([id number])
== END 2023-09-11 10:20 | disposition home or self-care (01) ==
PROVIDERS: PCP Internal Medicine; Visit Provider Internal Medicine Cardiovascular Disease
DX: Z95.2 Presence of prosthetic heart valve (principal); I77.89 Other specified disorders of arteries and arterioles
CPT/HCPCS: 93010; 99214

== ENCOUNTER → 2023-09-11 09:56 | Outpatient (BNVA) | payer MEDICARE, OTHER, SELFPAY | PROVIDERS: Visit Provider Internal Medicine Cardiovascular Disease | DX: I77.89 Other specified disorders of arteries and arterioles (principal); Z95.2 Presence of prosthetic heart valve | CPT/HCPCS: 93005; 99212 ==

== ENCOUNTER 2023-11-24 10:27 | Outpatient (REF) | payer MEDICARE, OTHER, SELFPAY ==
--- NOTE | ~2023-11-24 | MM_ITS ---
EXAMINATION: BONE DENSITOMETRY CLINICAL INDICATION: Postmenopausal estrogen deficiency. COMPARISON: Previous BD dated 08/07/2012 and baseline BD dated 05/12/2009. TECHNIQUE: Using a [employer] DXA System (software version: 13.1) manufactured by [employer], dual-energy x-ray absorptiometry was performed of the lumbar spine and left hip. The images are of good technical quality. Summary results are attached. FINDINGS: LEFT FEMUR, NECK: Current: BMD 0.859 g/cm2, Z-score 0.9, T-score -1.3, osteopenia. Prior: BMD 0.736 g/cm2. Baseline: BMD 0.772 g/cm2. LEFT FEMUR, TOTAL: Current: BMD 0.849 g/cm2, Z-score 0.8, T-score -1.3, osteopenia, 1.9% increase from previous, 1.0% decrease from baseline (<5% change is not significant). Prior: BMD 0.833 g/cm2. Baseline: BMD 0.858 g/cm2. AP SPINE L1-L4: Current: BMD 1.226 g/cm2, Z-score 2.1, T-score 0.4, normal, 12.1% increase from previous, 6.3% increase from baseline (<5% change is not significant). Prior: BMD 1.094 g/cm2. Baseline: BMD 1.153 g/cm2. IDENTIFIED RISK FACTORS: Menopause. HISTORY OF FRACTURE: None listed. MEDICATIONS: Vitamin D. MM/XR DEXA axial skeleton IMPRESSION: 1. DIAGNOSIS: Osteopenia based on the lowest T-score value of -1.3 in the femoral neck and total femur applying World Health Organization criteria. 2. 10-YEAR FRACTURE RISK PREDICTION, FRAX: Major osteoporotic fracture (clinical spine, forearm, hip or shoulder) 12.5%. Hip fracture 3.0%. 3. Treatment Recommendations: NOF guidelines recommend consideration for treatment in postmenopausal women and men age 50 and older presenting with the following: -A hip or vertebral (clinical or morphometric) fracture. -T-score less than or equal to -2.5 at the femoral neck or spine after appropriate evaluation to exclude secondary causes. -Low bone mass at the hip or spine and a 10-year fracture probability by FRAX of greater than or equal to 3% for hip fracture or greater than or equal to 20% for major osteoporotic fracture based on the [place] adapted WHO algorithm. 4. Other Recommendations: All treatment decisions require clinical judgment and consideration of individual patient factors, including patient preferences, comorbidities, previous drug use, risk factors not captured in the FRAX model (e.g. frailty, falls, vitamin D deficiency, increased bone turnover, interval significant decline in bone density) and possible under or overestimation of fracture risk by FRAX. Additional medical evaluation for secondary cause of low bone mineral density may be appropriate. FUTURE SCAN RECOMMENDATION: People with diagnosed cases of osteoporosis or at high risk for fracture should have regular bone mineral density tests. For patients eligible for Medicare, routine testing is allowed once every 2 years. The testing frequency can be increased to one year for patients who have rapidly progressing disease, those who are receiving or discontinuing medical therapy to restore bone mass, or have additional risk factors.
== END 2023-11-24 10:28 | disposition home or self-care (01) ==
LOC: HO.MAMMO 10:27
PROVIDERS: PCP Internal Medicine; Visit Provider Internal Medicine
DX: Z13.820 Encounter for screening for osteoporosis (principal); Z78.0 Asymptomatic menopausal state
CPT/HCPCS: 77080

== ENCOUNTER → 2024-08-21 09:56 | Outpatient (BNV) | payer MEDICARE, OTHER, SELFPAY | PROVIDERS: PCP Internal Medicine; Visit Provider Internal Medicine Cardiovascular Disease | DX: I34.0 Nonrheumatic mitral (valve) insufficiency (principal); I36.1 Nonrheumatic tricuspid (valve) insufficiency; Z95.3 Presence of xenogenic heart valve; I51.89 Other ill-defined heart diseases | CPT/HCPCS: 93306 ==

== ENCOUNTER 2024-09-27 11:40 | Outpatient (REF) | payer MEDICARE, OTHER, SELFPAY | END 2024-09-27 11:41 | disposition home or self-care (01) | LOC: HO.MAMMO 11:40 | PROVIDERS: PCP Internal Medicine; Visit Provider Internal Medicine | DX: Z12.31 Encounter for screening mammogram for malignant neoplasm of breast (principal) | CPT/HCPCS: 77063; 77067 ==

== ENCOUNTER → 2024-09-27 11:45 | Outpatient (BNV) | payer MEDICARE, OTHER, SELFPAY | PROVIDERS: PCP Internal Medicine; Visit Provider Internal Medicine | DX: Z12.31 Encounter for screening mammogram for malignant neoplasm of breast (principal) | CPT/HCPCS: 77063; 77067 ==

== ENCOUNTER 2024-10-21 11:03 | Outpatient (AMB) | payer MEDICARE, OTHER, SELFPAY ==
[2024-10-21 11:13] VITALS: BP 124/78; PULSE 81; BMI 25.4
--- NOTE | 2024-10-21 11:13 | MHC.OFFVIS ---
Vital Signs 10/21/24 11:13 Height 5 ft 4 in Weight 147 lb 11.355 oz BMI 25.4 BP 124/78 Blood Pressure Location Rt brachial Position Sitting Pulse 81 Intake Visit Reasons: 1 yr f/up Intake Note: 1 year follow-up with ekg feeling good Assistant Bookkeeper Required: No Allergies oxycodone [Oxycodone] Allergy (Mild, Verified 09/08/22 13:29) N/V, vomiting Sulfa (Sulfonamide Antibiotics) Allergy (Mild, Verified 09/08/22 13:29) HIVES acetaminophen [Vicodin] Allergy (Unknown, Verified 09/08/22 13:29) uknown atorvastatin [Lipitor] Allergy (Unknown, Verified 09/08/22 13:29) Unknown simvastatin [Zocor] Allergy (Unknown, Verified 09/08/22 13:29) Unknown hydrocodone [Hydrocodone] Adverse Reaction (Mild, Verified 09/08/22 13:29) N/V sulfa Allergy (Unknown, Uncoded 09/08/22 13:29) hives Medication List - Last Reconciled 10/21/24 by Pan Hanson MD amoxicillin 2,000 mg PO ONCE aspirin (Adult Low Dose Aspirin) 81 mg PO DAILY metoprolol tartrate 75 mg (1.5 x 50 mg) PO BID 90 days omeprazole 20 mg PO DAILY rosuvastatin 20 mg PO BEDTIME HPI Comments Details: Daniela comes for follow-up. She has been doing very well from cardiac perspective. She denies any exertional symptoms of chest pain or shortness of breath. No prolonged palpitation irregular heartbeat. Takes all her medications. No lightheadedness, syncope. No heart failure symptoms of orthopnea, PND, leg edema, abdominal distension. She says intermittently she gets left-sided swelling when she has been sitting for long period time. The swelling is below the knee and transient dissipated by the morning time. [facility] Medical History Enlarged thoracic aorta HTN (hypertension) Surgical History S/P AVR Hx of mastectomy Hx of knee surgery Hx of cardiac cath Family History Father CVD (cardiovascular disease) Mother No problems noted. Social History Alcohol intake: current Alcohol intake frequency: holidays/special occasions only Patient Tobacco Use Status: Never used Tobacco Review of Systems Const Denies chills, Denies fatigue, Denies fever(s), Denies frequent falls, Denies weakness, Denies weight gain and Denies weight loss ENT Denies dizziness Card Denies chest pain, Denies leg edema, Denies lightheadedness, Denies palpitations, Denies dyspnea, Denies dyspnea on exertion, Denies orthopnea and Denies other (loss of consciousness) Resp Denies cough, Denies dyspnea and Denies dyspnea on exertion GI Denies hematochezia and Denies change in stool character Musc Denies abnormal gait, Denies muscle weakness, Denies numbness, Denies radiating pain into limb and Denies tingling Neuro Denies abnormal gait, Denies dizziness, Denies frequent falls, Denies numbness, Denies tingling and Denies weakness Endo Denies fatigue and Denies palpitations Physical Exam Vital Signs: Last Vital Signs Pulse 81 10/21/24 11:13 BP 124/78 10/21/24 11:13 BMI result Body Mass Index 25.4 Const General: cooperative, comfortable, no acute distress, alert, awake and well groomed Nutritional Appearance: average body habitus Orientation/consciousness: patient oriented x3 Limitations: no limitations Neck Neck: Yes trachea midline, Yes supple and Yes no JVD Chest Chest palpation & inspection: normal inspection of the chest and other (Well-healed sternotomy scar) Resp Effort & Inspection: normal respiratory effort Auscultation: clear to auscultation bilaterally Cardio Jugular venous distension: no JVD Palpation: normal PMI Rate: regular rate Rhythm: regular rhythm Heart sounds: S1 normal heart sound present, S2 normal heart sound present, no click, no gallops, Murmur heart sound present systolic early and Other heart sounds present (S4 present) GI Auscultation: normal bowel sounds Skin General skin exam: no rashes or lesions noted Neuro General: patient oriented x3 and no focal motor deficits Extrem General: Yes no clubbing, cyanosis or edema Psych Appearance: grossly normal Office Procedures EKG Details: EKG shows normal sinus rhythm with nonspecific ST T wave changes with voltage criteria [place]H [id number], Complete Assessment & Plan Assessment & Plan (1) S/P AVR: Code(s): Z95.2 - Presence of prosthetic heart valve Category: Surgical Plan: Status post aortic valve replacement with TAVR doing well from that perspective. The valve is working well. Continue low-dose aspirin therapy. SBE prophylaxis as per ACC/aha guidelines. Continue aggressive blood pressure control. Continue vascular risk factor modification. (2) HTN (hypertension): Code(s): I10 - Essential (primary) hypertension Category: Medical Plan: Hypertension is well optimized. Target goal blood pressure less than 130/84. Continue metoprolol therapy. Low-salt diet was discussed. Advised to monitor blood pressure intermittently at home maintain a log. Maintain activity level as tolerated. (3) Enlarged thoracic aorta: Comment: 3.9 cm, July 2021 Code(s): I77.89 - Other specified disorders of arteries and arterioles Category: Medical Plan: Mildly enlarged thoracic aorta which has remained stable. No interventions required. Continue aggressive blood pressure control. Follow up in the clinic in 1 year's time after echocardiogram. Thank you for allowing me to partake in her care Coding Level of Care Code Est Pt Level 4 (01808) Complex EM visit Add On G2211 Diagnoses S/P AVR Z95.2 HTN (hypertension) I10 Enlarged thoracic aorta I77.89 CPT Codes EKG - CPT: 52539-[id number], Complete ([id number])
--- OUTSIDE RECORDS SUMMARY | 2024-10-21 13:14 | XMS_ITS | Patient Health Record ---
Author Organization [facility] Address [address] [place] [address] Care Team Providers Care Vet Tech Name Role Phone Michele Armando MD Primary Care Provider Unavaila Sammy Mendez Unavailable [phone] Allergies Allergen (clinical drug ingredient) Drug/Non Drug Allergy documented on EMR Reaction Allergy Type Onset Date Status Sulfa Unknown Drug Allergy Active Reason For Referral No Information Medications Medication SIG (Take, Route, Frequency, Duration) Notes Start Date End Date Status Omeprazole 20 MG null Diagnosis Unavailable Oral for 90 Active Metoprolol Tartrate 50 MG TAKE 1 AND 1/2 TABLETS BY MOUTH TWICE DAILY Oral for 90 Active Probiotic - as directed Orally Active CoQ-10 Active Aspir-81 Active Rosuvastatin Calcium 20 MG null Diagnosi s Unavailable Oral for 90 Active Immunizations Vaccine Route Administration Date Status Comme nts Influenza Unknown 06/02/2022 Others Problems Problem Type SNOMED Code ICD Code Onset Dates Problem Status W/U Status Risk Notes Problem History of adenomatous polyp of colon (809240599) History of adenomatous polyp of colon (Z86.010) Active confirmed Problem Abnormal feces (226339902) Heme + stool (R19.5) Active confirmed Plan Of Treatment Future Test Test Name Order Date COLONOSCOPY 10/16/2012 COLONOSCOPY 06/02/2022 Insurance Providers Payer Name Payer Address Payer Phone Subscriber Number Group Number Insured Name Patient Relationship to Insured Coverage Start Date Coverage End Date MEDICARE OF [place] [address] [place] [id number] SABINE GARCIA Self - patient is the insured FOR LIFE [address] [place] [address] [id number] SABINE GARCIA Self - patient is the insured Medical (General) History Medical History History ICD Code HTN Breast cancer as below Denies [place],DM,CVA,Lung disease,renal dise ase Hyperlipidemia Negative screening colonoscopy May 2003, other than diverticulosis Colonoscopy 11/2012 with a sm all tubular adenoma and a hyperplastic polyp removed ERCP with sphincterotomy and stone remov al 2017 Surgical History Surgery Date(Month/Year) Breast cancer on left 1977-mastectomy Knee replacements in [address] Nelson [facility] 2017 Aortic valve replacement--Bovine--[facility] 06/2018
== END 2024-10-21 11:36 | disposition home or self-care (01) ==
PROVIDERS: PCP Internal Medicine; Visit Provider Internal Medicine Cardiovascular Disease
DX: Z95.2 Presence of prosthetic heart valve (principal); I10 Essential (primary) hypertension; I77.89 Other specified disorders of arteries and arterioles
CPT/HCPCS: 93010; 99214; G2211

== ENCOUNTER → 2024-10-21 11:03 | Outpatient (BNVA) | payer MEDICARE, OTHER, SELFPAY | PROVIDERS: PCP Internal Medicine; Visit Provider Internal Medicine Cardiovascular Disease | DX: I10 Essential (primary) hypertension (principal); I77.89 Other specified disorders of arteries and arterioles; Z95.2 Presence of prosthetic heart valve | CPT/HCPCS: 93005; 99212 ==